=== PATIENT | female | born 1970 | race Caucasian/White ===

== ENCOUNTER 2017-05-05 06:42 | Emergency (ER) | payer OTHER ==
[~2017-05-05] VITALS: Ht 154.9 cm; Wt 71.7 kg
--- NOTE | 2017-05-05 08:16 | Diagnostic Imaging Report ---
Right Ankle - 3 views HISTORY: Pain. COMPARISON: None available. FINDINGS: Bones: No acute displaced fracture. No expansile lytic or sclerotic lesion. Joints: The joint spaces are well-maintained. No dislocation. Soft tissues: The soft tissues appear unremarkable. IMPRESSION: No acute radiographic abnormality. Signed by: Dr. Rivera Batres M.D. on 05/05/2017 8:13 AM
--- NOTE | 2017-05-05 08:17 | Diagnostic Imaging Report ---
Right tibia and fibula - 2 views HISTORY: Pain. COMPARISON: None available. FINDINGS: Bones: No acute displaced fracture. No expansile lytic or sclerotic lesion. Joints: The joint spaces are well-maintained. No dislocation. Soft tissues: The soft tissues appear unremarkable. IMPRESSION: No acute radiographic abnormality. Signed by: Dr. Rivera Batres M.D. on 05/05/2017 8:14 AM
== END 2017-05-05 08:29 | disposition home or self-care (01) ==
LOC: ER 06:42
DX: S93.401A Sprain of unspecified ligament of right ankle, initial encounter (principal); X58.XXXA Exposure to other specified factors, initial encounter; Y99.0 Civilian activity done for income or pay
CPT/HCPCS: 99284